=== PATIENT | female | born 1985 | race Caucasian/White ===

== ENCOUNTER 2022-11-07 12:42 | Outpatient (CLI) | payer OTHER | END 2022-11-07 15:50 | disposition home or self-care (01) | LOC: NST 12:42 | PROVIDERS: ATTEND Obstetrics & Gynecology Gynecology | DX: Z34.83 Encounter for supervision of other normal pregnancy, third trimester (principal) ==

== ENCOUNTER 2022-12-11 10:17 | Inpatient (IN) | payer OTHER ==
[~2022-12-11] VITALS: Ht 154.9 cm; Wt 3.2 kg
[2022-12-24] MEDS ORDERED: PRENATAL GUMMI1 EACH PO (18:16)
[2022-12-24] MEDS ORDERED: PEPCID AC20 MG PO (18:17)
== END 2022-12-28 12:12 | disposition home or self-care (01) | DRG 788 ==
LOC: LDR 12-24 13:00 → OB/GYN 12-25 12:52
PROVIDERS: Obstetrics & Gynecology; ADMIT Obstetrics & Gynecology Gynecology; ATTEND Obstetrics & Gynecology Gynecology
PROC: 3E0P7VZ Introduction of Hormone into Female Reproductive, Via Natural or Artificial Opening (ICD-10-PCS; 2022-12-24)
PROC: 4A1HXCZ Monitoring of Products of Conception, Cardiac Rate, External Approach (ICD-10-PCS; 2022-12-24)
PROC: 3E033VJ Introduction of Other Hormone into Peripheral Vein, Percutaneous Approach (ICD-10-PCS; 2022-12-25)
PROC: 10D00Z1 Extraction of Products of Conception, Low, Open Approach (ICD-10-PCS; principal; 2022-12-25 11:00)
DX: O33.8 Maternal care for disproportion of other origin (principal); Z3A.40 40 weeks gestation of pregnancy; Z37.0 Single live birth; Z20.822 Contact with and (suspected) exposure to COVID-19

== ENCOUNTER 2022-12-18 07:16 | Outpatient (CLI) | payer OTHER | END 2022-12-18 10:38 | disposition home or self-care (01) | LOC: NST 07:16 | PROVIDERS: ATTEND Obstetrics & Gynecology Gynecology | DX: Z34.83 Encounter for supervision of other normal pregnancy, third trimester (principal) ==